=== PATIENT | male | born 1975 | race Caucasian/White ===

== ENCOUNTER 2024-02-07 18:27 | Inpatient (IN) | payer OTHER, MEDICAID ==
[~2024-02-07] VITALS: Ht 177.8 cm; Wt 105.2 kg
[2024-02-07 20:05] LABS: Basophils # (auto) 0.1 10 ^3/uL (0-0.2); Basophils % (auto) 0.6 % (0.0-2.0); Eosinophils # (auto) 0.2 10 ^3/uL (0-0.8); Eosinophils % (auto) 1.3 % (0.0-7.0); Hematocrit 46.4 % (41.0-53.0); Hemoglobin 15.4 g/dL (13.5-17.5); Lymphocytes # (auto) 3.7 10 ^3/uL (0.4-5.4); Lymphocytes % (auto) 26.4 % (10.0-50.0); Mean Corpuscular Hemoglobin 29.4 pg (28.0-32.0); Mean Corpuscular Hgb Conc. 33.2 g/dL (32.0-36.0); Mean Corpuscular Volume 88.6 fL (80.0-100.0); Monocytes # (auto) 1.2 10 ^3/uL (0-1.3); Monocytes % (auto) 8.3 % (0.0-12.0); Neutrophils # (auto) 8.9 10 ^3/uL (1.6-8.6); Neutrophils % (auto) 63.4 % (37.0-80.0); Nucleated Red Blood Cells % 0.1 %; Red Blood Cells 5.23 10^6/uL (4.5-5.90); Red Cell Distribution Width 14.6 % (11.8-14.3)
[2024-02-07 20:22] LABS: Alanine Aminotransferase 33 U/L (7-40); Albumin 4.4 g/dL (3.2-4.8); Alkaline Phosphatase 84 U/L (46-116); Anion Gap 9 (5-15); Aspartate Aminotransferase 16 U/L (13-40); BUN/Creatinine Ratio 14.1 (10.0-20.0); Blood Urea Nitrogen 12 mg/dL (9-23); Calcium 9.9 mg/dL (8.7-10.4); Carbon Dioxide 24 mmol/L (20-30); Chloride 109 mmol/L (98-107); Glucose 138 mg/dL (74-106); Potassium 3.6 mmol/L (3.5-5.1); Sodium 142 mmol/L (136-145)
[2024-02-07 20:23] LABS: Bilirubin, Total 0.5 mg/dL (0.2-1.0)
[2024-02-07 20:24] LABS: INR 0.96 (0.9-1.15); Partial Thromboplastin Time 25.6 SEC (24.5-34.5); Prothrombin Time 10.2 sec (9.3-11.8)
[2024-02-07] MEDS: KETOROLAC TROMETH 30 MG/ML 1ML VIAL IV ONE (22:00)
[2024-02-07] MEDS: PIPERACILLIN-TAZO 4.5GM 100 ML IV ONE (22:01)
[2024-02-08] VITALS (7 sets, daily range): BP systolic 143–158; BP diastolic 91–97; PULSE 53–100; RESP 16–20; TEMP 97.7–98.5; O2SAT 93–97
[2024-02-08] MEDS: CLINDAMYCIN 900MG IV 50 ML IV ONE (06:04)
[2024-02-08 08:42] LABS: Urine Bacteria FEW /hpf (None Seen); Urine Blood Negative /uL (Negative); Urine Color Yellow (Yellow); Urine Mucus MANY (None Seen); Urine Protein, UAD 1+ (Negative); Urine Specific Gravity 1.036 (1.001-1.035); Urine Urobilinogen 2 mg/dL (Negative); Urine WBC 2 /hpf (0 - 3); Urine pH 5.5 (5.0-9.0)
[2024-02-08 08:44] LABS: Urine Clarity Hazy (Clear)
[2024-02-08] MEDS: SODIUM CHLORIDE 0.9% 1,000 ML IV ONE (09:30)
[2024-02-08] MEDS: SODIUM CHLORIDE 0.9% 1,000 ML IV SCH (09:30)
[2024-02-08 10:10] LABS: CRP High Sensitivity 0.85 mg/dL (<1.0)
[2024-02-08 10:28] LABS: Erythrocyte Sedimentation Rate 9 mm/hr (0-20)
[2024-02-08] MEDS: MULTIPLE VITAMIN TAB PO SCH (11:26)
[2024-02-08] MEDS: ZINC SULFATE 220mg CAP or TAB PO SCH (11:26)
[2024-02-08] MEDS: ENOXAPARIN SOD 40 MG/0.4 ML SYRINGE SC SCH (11:27)
[2024-02-08] MEDS: ASCORBIC ACID 500 MG TAB PO SCH (11:27)
[2024-02-08] MEDS: CLINDAMYCIN 600MG IV 50 ML IV SCH (14:00)
[2024-02-08] MEDS ORDERED: LITH300C3 PO (14:34)
[2024-02-08] MEDS: HYDROcodone-ACET 5/325MG TAB PO PRN (17:52)
[2024-02-09] VITALS (7 sets, daily range): BP systolic 155–179; BP diastolic 78–102; PULSE 85–109; RESP 16–20; TEMP 97.3–98.5; O2SAT 94–98
[2024-02-09 06:11] LABS: Basophils # (auto) 0.1 10 ^3/uL (0-0.2); Basophils % (auto) 0.6 % (0.0-2.0); Eosinophils # (auto) 0.2 10 ^3/uL (0-0.8); Eosinophils % (auto) 2.3 % (0.0-7.0); Hematocrit 42.2 % (41.0-53.0); Hemoglobin 14.7 g/dL (13.5-17.5); Lymphocytes # (auto) 1.3 10 ^3/uL (0.4-5.4); Lymphocytes % (auto) 15.3 % (10.0-50.0); Mean Corpuscular Hemoglobin 30.7 pg (28.0-32.0); Mean Corpuscular Hgb Conc. 34.9 g/dL (32.0-36.0); Mean Corpuscular Volume 87.9 fL (80.0-100.0); Monocytes # (auto) 0.8 10 ^3/uL (0-1.3); Monocytes % (auto) 8.7 % (0.0-12.0); Neutrophils # (auto) 6.4 10 ^3/uL (1.6-8.6); Neutrophils % (auto) 73.1 % (37.0-80.0); Red Blood Cells 4.81 10^6/uL (4.5-5.90); Red Cell Distribution Width 14.3 % (11.8-14.3); White Blood Cell 8.7 10^3/uL (4.4-10.8)
[2024-02-09 06:29] LABS: Alanine Aminotransferase 52 U/L (7-40); Alkaline Phosphatase 99 U/L (46-116); Anion Gap 6 (5-15); BUN/Creatinine Ratio 18.1 (10.0-20.0); Blood Urea Nitrogen 13 mg/dL (9-23); Calcium 9.1 mg/dL (8.7-10.4); Carbon Dioxide 24 mmol/L (20-30); Chloride 109 mmol/L (98-107); Glucose 167 mg/dL (74-106); Potassium 3.4 mmol/L (3.5-5.1); Sodium 139 mmol/L (136-145)
[2024-02-09 06:30] LABS: Albumin 3.9 g/dL (3.2-4.8); Aspartate Aminotransferase 29 U/L (13-40)
[2024-02-09 06:31] LABS: Bilirubin, Total 0.6 mg/dL (0.2-1.0); Total Protein 5.9 g/dL (5.7-8.2)
[2024-02-09] MEDS: NICOTINE 21MG/24 HR TOPICAL PATCH TD ONE (13:15)
[2024-02-09] MEDS: hydrALAZINE HCL 20 MG/ML VL IV PRN (13:15)
[2024-02-09] MEDS: LITHIUM CARBONATE 300 MG TAB PO ONE (17:54)
[2024-02-09] MEDS: POTASSIUM EFFERVESENT TAB 25 MEQ PO ONE (17:54)
[2024-02-10] VITALS (7 sets, daily range): BP systolic 118–164; BP diastolic 52–98; PULSE 68–107; RESP 14–18; TEMP 97.6–98.6; O2SAT 94–97
[2024-02-10 07:46] LABS: Basophils # (auto) 0.1 10 ^3/uL (0-0.2); Basophils % (auto) 0.6 % (0.0-2.0); Eosinophils # (auto) 0.2 10 ^3/uL (0-0.8); Eosinophils % (auto) 1.9 % (0.0-7.0); Hematocrit 44.6 % (41.0-53.0); Hemoglobin 15.3 g/dL (13.5-17.5); Lymphocytes # (auto) 2.5 10 ^3/uL (0.4-5.4); Lymphocytes % (auto) 24.1 % (10.0-50.0); Mean Corpuscular Hemoglobin 30.3 pg (28.0-32.0); Mean Corpuscular Hgb Conc. 34.2 g/dL (32.0-36.0); Mean Corpuscular Volume 88.5 fL (80.0-100.0); Monocytes % (auto) 9.5 % (0.0-12.0); Neutrophils # (auto) 6.6 10 ^3/uL (1.6-8.6); Neutrophils % (auto) 63.9 % (37.0-80.0); Red Blood Cells 5.04 10^6/uL (4.5-5.90); White Blood Cell 10.3 10^3/uL (4.4-10.8)
[2024-02-10 08:06] LABS: Alanine Aminotransferase 47 U/L (7-40); Alkaline Phosphatase 89 U/L (46-116); Anion Gap 5 (5-15); Aspartate Aminotransferase 18 U/L (13-40); Calcium 9.3 mg/dL (8.7-10.4); Carbon Dioxide 24 mmol/L (20-30); Chloride 111 mmol/L (98-107); Glucose 134 mg/dL (74-106); Magnesium 1.8 mg/dL (1.6-2.6); Potassium 3.8 mmol/L (3.5-5.1); Sodium 140 mmol/L (136-145)
[2024-02-10 08:07] LABS: Albumin 3.9 g/dL (3.2-4.8); Bilirubin, Total 0.3 mg/dL (0.2-1.0)
[2024-02-10 09:03] LABS: BUN/Creatinine Ratio 14.5 (10.0-20.0); Blood Urea Nitrogen 10 mg/dL (9-23)
[2024-02-10] MEDS: NICOTINE 21MG/24 HR TOPICAL PATCH TD SCH (09:35)
[2024-02-10] MEDS: LITHIUM CARBONATE 300 MG TAB PO SCH (10:17)
[2024-02-10 11:46] LABS: Erythrocyte Sedimentation Rate 9 mm/hr (0-20)
[2024-02-11] VITALS (10 sets, daily range): BP systolic 144–180; BP diastolic 80–99; PULSE 80–129; RESP 18–20; TEMP 97.8–98.7; O2SAT 94–97
[2024-02-11 05:50] LABS: Basophils # (auto) 0.1 10 ^3/uL (0-0.2); Basophils % (auto) 0.8 % (0.0-2.0); Eosinophils # (auto) 0.2 10 ^3/uL (0-0.8); Eosinophils % (auto) 1.6 % (0.0-7.0); Hematocrit 44.2 % (41.0-53.0); Hemoglobin 14.9 g/dL (13.5-17.5); Lymphocytes # (auto) 2.7 10 ^3/uL (0.4-5.4); Lymphocytes % (auto) 25.4 % (10.0-50.0); Mean Corpuscular Hemoglobin 29.6 pg (28.0-32.0); Mean Corpuscular Hgb Conc. 33.8 g/dL (32.0-36.0); Mean Corpuscular Volume 87.8 fL (80.0-100.0); Monocytes # (auto) 0.9 10 ^3/uL (0-1.3); Monocytes % (auto) 8.7 % (0.0-12.0); Neutrophils # (auto) 6.6 10 ^3/uL (1.6-8.6); Neutrophils % (auto) 63.5 % (37.0-80.0); Nucleated Red Blood Cells % 0.1 %; Red Blood Cells 5.04 10^6/uL (4.5-5.90); Red Cell Distribution Width 14.3 % (11.8-14.3); White Blood Cell 10.5 10^3/uL (4.4-10.8)
[2024-02-11 06:07] LABS: Anion Gap 8 (5-15); Carbon Dioxide 22 mmol/L (20-30); Chloride 109 mmol/L (98-107); Potassium 3.8 mmol/L (3.5-5.1); Sodium 139 mmol/L (136-145)
[2024-02-11 06:08] LABS: Calcium 9.4 mg/dL (8.7-10.4)
[2024-02-11 06:13] LABS: BUN/Creatinine Ratio 15.4 (10.0-20.0); Blood Urea Nitrogen 10 mg/dL (9-23); Glucose 143 mg/dL (74-106)
[2024-02-11] MEDS: LISINOPRIL 5 MG TAB PO ONE (08:54)
[2024-02-11] MEDS ORDERED: LISINOPRIL 5 MG TAB PO SCH (10:00)
[2024-02-11] MEDS: METOPROLOL SUCCINATE XL 50 MG TAB PO ONE (13:50)
[2024-02-11] MEDS ORDERED: METOPROLOL SUCCINATE XL 50 MG TAB PO ONE (15:30)
[2024-02-11] MEDS ORDERED: NICO14DI9 TD (20:35)
[2024-02-11] MEDS ORDERED: ACET-1882 PO (20:35)
[2024-02-11] MEDS ORDERED: MULTTAB99 PO (20:35)
[2024-02-11] MEDS ORDERED: ASCO500T11 PO (20:35)
[2024-02-11] MEDS ORDERED: CLIN-188 PO (20:35)
[2024-02-11] MEDS ORDERED: METO25TA93 PO (20:35)
[2024-02-11] MEDS ORDERED: LITH300T5 PO (20:35)
[2024-02-11] MEDS: ACETAMINOPHEN 325 MG TAB PO PRN (22:06)
[2024-02-12 01:02] VITALS: BP 125/70; PULSE 93; RESP 20; TEMP 98; O2SAT 96
[2024-02-12 05:00] VITALS: BP 121/75; PULSE 93; RESP 20; TEMP 98.6; O2SAT 93
[2024-02-12 05:29] LABS: Chloride 110 mmol/L (98-107); Potassium 3.7 mmol/L (3.5-5.1); Sodium 139 mmol/L (136-145)
[2024-02-12 05:30] LABS: Anion Gap 5 (5-15); Calcium 9.9 mg/dL (8.7-10.4); Carbon Dioxide 24 mmol/L (20-30)
[2024-02-12 05:35] LABS: BUN/Creatinine Ratio 12.5 (10.0-20.0); Blood Urea Nitrogen 9 mg/dL (9-23); Glucose 128 mg/dL (74-106)
[2024-02-12 05:37] LABS: Basophils # (auto) 0.1 10 ^3/uL (0-0.2); Basophils % (auto) 0.6 % (0.0-2.0); Eosinophils # (auto) 0.3 10 ^3/uL (0-0.8); Eosinophils % (auto) 2.2 % (0.0-7.0); Hematocrit 46.6 % (41.0-53.0); Hemoglobin 15.9 g/dL (13.5-17.5); Lymphocytes # (auto) 3.4 10 ^3/uL (0.4-5.4); Lymphocytes % (auto) 27.9 % (10.0-50.0); Mean Corpuscular Hemoglobin 30.1 pg (28.0-32.0); Mean Corpuscular Hgb Conc. 34.1 g/dL (32.0-36.0); Mean Corpuscular Volume 88.4 fL (80.0-100.0); Monocytes % (auto) 7.9 % (0.0-12.0); Neutrophils # (auto) 7.5 10 ^3/uL (1.6-8.6); Neutrophils % (auto) 61.4 % (37.0-80.0); Nucleated Red Blood Cells % 0.1 %; Red Blood Cells 5.27 10^6/uL (4.5-5.90); Red Cell Distribution Width 14.8 % (11.8-14.3); White Blood Cell 12.3 10^3/uL (4.4-10.8)
[2024-02-12 08:48] VITALS: BP 144/87; PULSE 94; RESP 18; TEMP 98.3; O2SAT 96
[2024-02-12] MEDS: PNEUMOCOCCAL VACC POLYS 25 MCG/0.5 ML VIAL IM ONE (09:36)
[2024-02-12] MEDS: NICOTINE 7MG/24HR TOPICAL PATCH TD SCH (09:37)
[2024-02-12] MEDS: FUROSEMIDE 40 MG/4 ML VIAL IV ONE (09:39)
[2024-02-12] MEDS: METOPROLOL SUCCINATE XL 50 MG TAB PO ONE (09:40)
[2024-02-12] MEDS: LISINOPRIL 5 MG TAB PO SCH (09:41)
[2024-02-12] MEDS ORDERED: METOPROLOL SUCCINATE XL 50 MG TAB PO SCH (10:00)
[2024-02-12] MEDS ORDERED: ERGO1CAP23 PO (13:18)
[2024-02-12] MEDS ORDERED: CYAN100056 PO (13:18)
[2024-02-13] MEDS ORDERED: FUROSEMIDE 40 MG/4 ML VIAL IV SCH (10:00)
== END 2024-02-12 11:25 | disposition home or self-care (01) | DRG 871 ==
LOC: ER 18:27 → OVERFLOW 02-08 09:25 → WEST WING 02-08 09:50
PROVIDERS: ADMIT Internal Medicine; ATTEND Internal Medicine
DX: A41.9 Sepsis, unspecified organism (principal); I50.33 Acute on chronic diastolic (congestive) heart failure; L03.115 Cellulitis of right lower limb; L03.116 Cellulitis of left lower limb; Z59.01 Sheltered homelessness; E66.01 Morbid (severe) obesity due to excess calories; F17.210 Nicotine dependence, cigarettes, uncomplicated; F32.9 Major depressive disorder, single episode, unspecified; E87.6 Hypokalemia; I11.0 Hypertensive heart disease with heart failure; E11.9 Type 2 diabetes mellitus without complications; Z88.0 Allergy status to penicillin; Z90.49 Acquired absence of other specified parts of digestive tract; Z68.33 Body mass index [BMI] 33.0-33.9, adult; Z83.3 Family history of diabetes mellitus; Z82.49 Family history of ischemic heart disease and other diseases of the circulatory system
CPT/HCPCS: 36415; 71045; 80048; 80053; 80061; 80178; 81001; 82306; 82607; 83036; 83605; 83735; 83880; 84443; 84484; 85025; 85610; 85652; 85730; 86141; 87040; 93306; 93970; 96365; 96375; G0378; J1885; J2543; J3490